=== PATIENT | male | born 1995 | race Caucasian/White ===

== ENCOUNTER 2023-12-24 15:34 | Outpatient (CLI) | payer OTHER, SELFPAY ==
--- NOTE | 2023-12-24 15:43 | XR_ITS ---
FINAL REPORT CLINICAL HISTORY: COCCYX PAIN FINDINGS: SACRUM/COCCYX 3 views were obtained. There is no acute fracture or dislocation. The sacroiliac joints are intact. The sacral arch is intact. There is no soft tissue abnormality. IMPRESSION: No acute bony abnormality. Reviewed, Interpreted and Dictated by Emiliano Rodriguez MD Transcribed by Caitlyn Robbins Authenticated and [facility]
== END 2023-12-24 23:59 ==
LOC: RAD 15:37
PROVIDERS: PCP Internal Medicine Adolescent Medicine; Visit Provider Physician Assistant
DX: M53.3 Sacrococcygeal disorders, not elsewhere classified (principal)
CPT/HCPCS: 72220